=== PATIENT | male | born 1985 | race African-American/Black ===

== ENCOUNTER 2016-11-14 15:00 | Emergency (ER) | payer MEDICAID ==
[~2016-11-14] VITALS: Ht 185.4 cm; Wt 75.5 kg
[2016-11-14] MEDS ORDERED: CHLORDIAZEPOXIDE 25 MG CAPSULE PO ONE (16:00)
[2016-11-14 16:13] LABS: HEMOGLOBIN 15.2 g/dL (13.7-18.0)
[2016-11-14 16:15] LABS: ASPARTATE AMINO TRANSFERASE 76 U/L (15-37); BLOOD UREA NITROGEN 10 mg/dL (7-18)
[2016-11-14 17:19] LABS: DAU SCREEN DISCLAIMER
[2016-11-14 20:08] VITALS: BP 110/60
== END 2016-11-14 20:10 | disposition home or self-care (01) ==
LOC: ED 17:11
DX: F10.20 Alcohol dependence, uncomplicated (principal); Y90.9 Presence of alcohol in blood, level not specified
CPT/HCPCS: 36415; 80053; 80307; 85025; 99284